=== PATIENT | female | born 1995 | race Caucasian/White ===

== ENCOUNTER 2025-03-24 13:57 | Emergency (ER) | payer SELFPAY ==
[2025-03-24] VITALS (25 sets, daily range): BP systolic 106–125; BP diastolic 36–78; PULSE 74–96; RESP 13–28; TEMP 36.8; O2SAT 96–100
--- NOTE | 2025-03-24 14:00 | RT.EKG_ITS ---
APPROVED REPORT Exam: Resting ECG Reason for Exam: dizziness Patient Location: E HR:82 bpm ECG Measurements Heart Rate 82 AXIS ND 152 P 63 QRSd 103 QRS 51 QT 366 T [id number] QTc 429 Conclusion Sinus rhythm...normal P axis, V-rate 60- 99 Nonspecific T abnormalities, lateral leads...T <-0.10mV, I aVL V5 V6
--- NOTE | 2025-03-24 14:33 | ED.GENADUL_ITS ---
Discharge Plan Discharge Details Chief Complaint: Dizzy/Sync ED Provider: Sarita Houser General Date/Time Provider Initiated Documentation: 03/24/25 14:14 . Limitations to Documentation: no limitations . Information obtained by: patient, family () and RN notes reviewed . History of Present Illness 29 year old F presents to the emergency department with the chief complaint of Chest tightness, chest discomfort, lightheadedness and presyncope, described as moderate, Quality is described as other (Tightness), and is localized to the chest. Patient reports no radiation. Patient started experiencing this week(s) (1) and it has been constant. Immobilization improves symptom(s), Movement worsens symptoms . Patient notes chest pain, loss of appetite, malaise and shortness of breath; denies cough, diaphoresis, fever/chills, headaches, nausea/vomiting, syncope and weakness. Patient did receive the following treatments prior to arrival, none General Stated Complaint: Dizzy/Sync SULEMA: 3 Review of Systems Constitutional Constitutional: Reports as per HPI, Denies chills, Denies fever(s) and Denies headache(s) Eyes Eyes: Denies change in vision ENT Ears, Nose, Mouth, and Throat: Denies headache(s) Cardiovascular Cardiovascular: Reports as per HPI Respiratory Respiratory: Reports as per HPI, Denies chest congestion, Denies cough, Denies pain on inspiration and Denies pain with cough Gastrointestinal Gastrointestinal: Reports as per HPI, Denies abdominal pain, Denies diarrhea, Denies nausea and Denies vomiting Genitourinary Genitourinary: Denies abnormal vaginal bleeding (No menses or vaginal bleeding since about 4 weeks ) Musculoskeletal Musculoskeletal: Reports as per HPI and Denies back pain Integumentary/Breasts Skin/Breast: Reports as per HPI and Denies rash Neurologic Neurologic: Reports as per HPI and Denies headache(s) Exam Const General: cooperative, healthy appearing, comfortable, no acute distress, well developed and anxious Nutritional Appearance: average body habitus and well nourished Orientation: alert, awake and oriented x3 HENMT Head: normal to inspection Ears: hearing grossly normal bilaterally Mouth: moist mucous membranes Chest Chest: normal inspection of the chest, normal palpation of entire chest wall and no crepitus Resp Effort & Inspection: normal respiratory effort, able to speak in complete sentences and no respiratory distress Auscultation: clear to auscultation bilaterally, no rales, no rhonchi and no wheezes Cardio Rate: tachycardic Rhythm: regular rhythm Heart Sounds: S1 normal and S2 normal GI Inspection: normal to inspection, no edema and non-distended Palpation: soft, no guarding, not rigid and nontender Auscultation: normal bowel sounds Skin General skin exam: no rashes or lesions noted Trauma: no lacerations or abrasions Neuro General: patient alert, patient awake and patient oriented x3 Cognition: normal cognition Speech: speech normal Gait: normal gait Extrem General: normal to inspection, capillary refill normal, no pedal edema, no calf tenderness, normal gait and other (Dressing over wound anterior right calf) Psych Appearance: grossly normal Mental Status: mental status grossly normal Speech and Movement: pressured speech and slowed movement Mood: anxious mood Affect: sad and blunted Course Vital Signs Vital signs: Vital Signs Temperature 36.8 C 03/24/25 14:05 Pulse 91 H 03/24/25 14:05 Respiratory Rate 18 03/24/25 14:05 Blood Pressure 117/78 03/24/25 14:05 Pulse Oximetry 98 03/24/25 14:05 Temperature 36.8 C 03/24/25 14:05 Temperature Source Oral 03/24/25 14:05 Pulse 91 H 03/24/25 14:05 Respiratory Rate 18 03/24/25 14:05 Blood Pressure 117/78 03/24/25 14:05 Blood Pressure Position Sitting 03/24/25 14:05 Pulse Oximetry 98 03/24/25 14:05 Oxygen Delivery Method Room Air 03/24/25 14:05 Oxygen Flow Rate 0 03/24/25 14:05 Pain Level 0 03/24/25 14:05 Medical Decision Making Patient is a pleasant 29-year-old female, accompanied by her and 2-month-old baby, presented with chief complaint of dizziness, lightheadedness, chest tightness and shortness of breath. She reports this began about 1 week ago. Notes it is worsened with exertion. However, even when being sedentary the symptoms never completely resolve. She reports that symptoms have been steadily worsening. She denies any cough, congestion, fever/chills. States that she had typical bleeding and states that she has not had any in about a month and a half. She denies any abdominal pain. 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 Also states that she had a DVT prior to this , unclear when and how this may have been diagnosed. She has been treating homeopathically. On exam, patient appears withdrawn, quiet and is initially difficult to get answers out of. She did begin to open up more. Does seem to have good supportive relationship with her significant other. Is interactive with her the baby appropriately. Lungs are clear, normal cardiac exam. Abdomen is benign. She has a dressing over the anterior aspect of the right tibia where she reports that her prior superficial DVT had been localized. However, this is for discomfort associated with skin irritation from her topical therapies. No palpable DVT, negative Homans' sign. She has 2+ distal pulses in all of her extremities. Primarily concerned at this point for pulmonary emboli given the patient's history of DVT, reported current DVT as well as time period, particular with shortness of breath, chest tightness. The area in question regarding her DVT is slightly suspicious given its location, it does not appear consistent with typical DVT location or exams. She has no lower extremity sw elling. Patient is hemodynamically stable. She is slightly tachycardic but is not hypotensive. She is not hypoxic. Called into the room by nursing staff were concerned the patient was starting to have increased severity of symptoms, particularly with her lightheadedness. This is with the patient still in a seated position. I then tried to lay her back and patient states that she became more uncomfortable and short of breath. She remains hemodynamically stable with no significant hypotension or increase in her tachycardia. This prompted a bedside ultrasound which Dr. Nicole completed with my assistance. Completed a lake exam along with DVT study. No indication at this point for right-sided heart strain, wall motion abnormalities, free fluid, DVT. However, IVC is highly collapsible so more concerned for dehydration. With the increased temperatures as well as patient continuing to breast-feed, this would fit the clinical picture. Patient is receiving 1 L fluid, has ordered a second. Patient is currently breast-feeding. Dr. Nicole was also able to speak with the patient further and is also questioning her mental health. She does have good support with her local community. She is not actively suicidal or homicidal but he is grieving the loss of her first born child who due to complications of cardiac congenital abnormalities. This can undergo given the setting, has increased concerns for mental health. However, symptoms may also be exacerbated with the dehydration and difficulty sleeping with a at home. Is a patient continues to have some shortness of breath and continues to be concern for pulmonary source, we will move forward with a CTA that had previously been ordered when we are primarily concerned for pulmonary emboli. Given the findings of the [place] exam, pulmonary emboli less likely. No indication to suggest infectious etiology. Patient does not have any leukocytosis. Stable H&H. No significant abnormality in the CMP. Not been having any continued vaginal complaints and did not have any discomfort in the pelvic region with the ultrasound or with palpation. If the patient is improving, feel it is appropriate for discharge after hydration as well as having good community support for her mental health. At the end of my shift, care transitioned to oncoming clinician with imaging and reassessment pending. [facility] Social History Smoking/Tobacco Use Status: Never Smoking risk assessment performed?: Yes Alcohol Intake: never Substance use type: does not use Housing: house Additional Social history: patient is with [facility] Exam (ED) [facility] Exam DATE OF EXAM: 03/24/25 TIME OF EXAM: 16:18 PROVIDER THAT PERFORMED THE STUDY: Kwame Nicole IS THIS A REPEAT EXAM DURING THIS ENCOUNTER: No REASON FOR EXAM: Other (SOB, lightheadedness) indication: sob VISUALIZED STRUCTURES: Aorta, Bladder, Cardiac Four Chambers, Heart, Inferior Vena Cava and Looney's pouch PERTINENT FINDINGS/IMPRESSION: Abnormal IVC, (highly collapsable and ) details of abnormalities: normal ; No aorta abnormalities, No free fluid, No global cardiac hypokinesis noted and No pericardial effusion DIFFERENTIAL DIAGNOSES: Dehydration Echocardiography/Transthoracic Limited Exam: Exam Complete Chest Limited Exam: Exam Complete Abdominal Limited Exam: Exam Complete Retroperitoneal Limited Exam: Exam Complete Limited Vascular Exam DATE OF EXAM: 03/24/25 TIME OF EXAM: 16:20 PROVIDER THAT PERFORMED THE STUDY: Kwame Nicole IS THIS A REPEAT EXAM DURING THIS ENCOUNTER: No Vascular Exam: Right lower extremity REASON FOR EXAM: Concern for DVT right lower extremity VISUALIZED STRUCTURES: Right common femoral vein, Right popliteal vein, Right superficial femoral vein and Right greater saphenous vein PERTINENT FINDINGS/IMPRESSION: Compressible veins right leg and No apparent abnormalities Exam Complete DIFFERENTIAL DIAGNOSES: No DVT evident
[2025-03-24 14:53] LABS: Abs Immature Grans 0.02 10^3/uL (0.0-0.06); HCT 39.8 % (36.0-46.0); HGB 13.7 g/dL (11.2-15.7); Immature Grans % 0.3 %; MCH 30.0 pg (27.0-33.0); MCHC 34.4 % (32.0-36.0); MCV 87 fL (80-95); MPV 9.2 fL (8.0-11.0); Platelet Count 223 10^3/uL (130-400); RBC 4.57 10^6/uL (3.93-5.22); RDW 12.9 % (11.7-14.6); RDW-SD 40.8 fL; WBC 6.59 10^3/uL (4.4-10.8)
[2025-03-24 15:17] LABS: ALT 63 U/L (14-59); AST 31 U/L (15-37); Albumin 3.8 g/dL (3.4-5.0); Alkaline Phosphatase 40 U/L (46-116); Anion Gap 9.8 mmol/L (3-11); BUN 8 mg/dL (7-18); Bilirubin, Total 0.6 mg/dL (0.2-1.0); CO2 23.2 mmol/L (21.0-32.0); Calcium 9.8 mg/dL (8.5-10.1); Chloride 105 mmol/L (98-107); Estimated GFR 125.31 (mL/min/1.73m2); Glucose 104 mg/dL (74-106); Magnesium 1.9 mg/dL (1.8-2.4); Potassium 3.4 mmol/L (3.5-5.1); Sodium 138 mmol/L (136-145); Total Protein 7.2 g/dL (6.4-8.2); Troponin I 4 ng/L (<or=51)
[2025-03-24 15:28] LABS: INR 1.1 (0.9-1.1); PTT Activated 23.7 sec (20.6-30.2); Prothrombin Time 10.7 sec (9.1-11.1)
[2025-03-24] MEDS: Lactated Ringers 1,000 ML 1000 ML IV (15:50)
[2025-03-24] MEDS: Omnipaque 350 MG/ML 100 ML BTL IJ (16:00)
[2025-03-24] MEDS: Normal Saline Flush 10 ML SYR IVP (16:00)
[2025-03-24] MEDS: Normal Saline - Diluent 50 ML VIAL IJ (16:01)
--- NOTE | 2025-03-24 16:17 | DI.CT_ITS ---
Exam(s) CT CHEST PE CTA EXAM: CT CHEST PE CTA CLINICAL HISTORY: SOB, tight, lightheaded 2mo post . TECHNIQUE: Imaging Protocol: Axial CT angiography was performed with multi- slice acquisition and multi-planar reconstructions as well as axial, coronal and sagittal MIP reconstructions. Computer aided detection (CAD) was utilized. CONTRAST MATERIAL: Intravenous: Omnipaque 350 Contrast volume:70 ml COMPARISON: No exams were available for comparison FINDINGS: Pulmonary Arteries: No evidence of filling defect to suggest pulmonary emboli. Mediastinum and Deborah: No dominant adenopathy or fluid collection. Pulmonary parenchyma: No consolidation or dominant measurable mass. Pleura: No effusion or pneumothorax. Heart: The heart is not dilated. No coronary artery calcifications are seen. Aorta: Thoracic aorta non-dilated. No dissection. Upper abdomen: No acute findings. Bones: Unremarkable for age. Tubes, Catheters, and Lines: None Soft tissues: Unremarkable. IMPRESSION: No evidence of pulmonary embolism or other acute abnormality. RADIATION DOSE DELIVERED: Total DLP DATA REPOSITORY: All CT scans at this facility are submitted to the National Radiology Data Registry (NRDR) Dose Index Registry (DIR) with the [employer] ([employer]). RADIATION OPTIMIZATION: All CT scans at this facility use at least one of these dose optimization techniques: automated exposure control; mA and/or kV adjustment per patient size (includes targeted exams where dose is matched to clinical indication); or iterative reconstruction.
--- NOTE | 2025-03-24 16:57 | ED.PROG_ITS ---
Date of service: 03/24/25 Time of Service: 15:30 Medical Decision Making Handoff report received from Sarita SIFUENTES, daytime KATHRIN. Please see her note for full HPI, ROS, PE, and laboratory evaluation. Patient signed out pending CTA and fluid administration. In short, Abena is a 29-year-old female approximately 2 months who presents to the emergency department today for evaluation of lightheadedness/dizziness episodes with chest tightness. Workup overall reassuring, CBC, coags, CMP, magnesium, serial troponins, all reassuring. CTA chest unremarkable. While in the ED, Abena received IV fluids and was able to eat crackers and drink apple juice without difficulty. She ambulated without difficulty, only mild dizziness with rising from laying. Overall workup today reassuring, unclear etiology of chest discomfort and dizziness, likely related to dehydration and acid reflux, as patient reports she has had occasional burping and nausea as well as the sternal chest tightness. She does not currently have a PCP, is being followed up by handhole machine operator. She says that she is open to following up with [facility], a primary care office in [place] that her handhole machine operator refers patients to. Discharge instructions with patient, including symptomatic management, importance of follow-up with PCP, self-care, and red flags indicating need for return to emergency care Imaging Data Radiologic Study: Radiologist's impression: Exam(s) CT CHEST PE CTA EXAM: CT CHEST PE CTA CLINICAL HISTORY: SOB, tight, lightheaded 2mo post . TECHNIQUE: Imaging Protocol: Axial CT angiography was performed with multi- slice acquisition and multi-planar reconstructions as well as axial, coronal and sagittal MIP reconstructions. Computer aided detection (CAD) was utilized. CONTRAST MATERIAL: Intravenous: Omnipaque 350 Contrast volume:70 ml COMPARISON: No exams were available for comparison FINDINGS: Pulmonary Arteries: No evidence of filling defect to suggest pulmonary emboli. Mediastinum and Deborah: No dominant adenopathy or fluid collection. Pulmonary parenchyma: No consolidation or dominant measurable mass. Pleura: No effusion or pneumothorax. Heart: The heart is not dilated. No coronary artery calcifications are seen. Aorta: Thoracic aorta non-dilated. No dissection. Upper abdomen: No acute findings. Bones: Unremarkable for age. Tubes, Catheters, and Lines: None Soft tissues: Unremarkable. IMPRESSION: No evidence of pulmonary embolism or other acute abnormality. Discharge Plan Disposition Patient Disposition: Home Condition: Good Discharge Details Clinical Impression: Dizziness, Chest tightness Primary Care Provider: Unknown,Unknown ED Provider: Lisandra Rosas Discharge Instructions Additional Instructions: Please call your handhole machine operator to discuss today's emergency department visit. I recommend that you establish care with a primary care provider for further evaluation/management. Your workup today was very reassuring. Your blood work was all unremarkable, there were no blood clots or other abnormalities noted on the chest CT. It does appear you were dehydrated today. I recommend that you drink plenty of fluids throughout the day and eat regular meals to help keep up your blood sugars and fluid levels. Get plenty of rest, leaning on those around you for help as needed. Your chest tightness may be related to acid reflux, as it seems to be accompanied by some nausea and belching. You may try famotidine 20 mg by mouth daily to help suppress acid. Avoiding meals before bedtime and sleeping with the head of the bed propped up may also be helpful. Return to emergency care if you develop new episodes of passing out, worsening chest pain/difficulty breathing, or if you are very worried and need to be rechecked again immediately.
[2025-03-24 17:17] LABS: Troponin I < 4 ng/L (<or=51)
== END 2025-03-24 19:11 | disposition home or self-care (01) ==
PROVIDERS: Physician Assistant; Emergency Provider Nurse Practitioner Family
DX: R07.89 Other chest pain (principal); R42 Dizziness and giddiness; R11.0 Nausea
CPT/HCPCS: 00123; 71275; 76604; 76705; 76775; 80053; 93005; 93308; 93971; 96360; 99284; 83735; 84484; 85025; 85610; 85730; 93010; 99283; J3490